=== PATIENT | male | born 1970 | race Two or more races ===

== ENCOUNTER 2017-03-09 18:18 | Emergency (ER) | payer OTHER ==
[~2017-03-09] VITALS: Ht 167.6 cm; Wt 86.2 kg
[2017-03-09 18:25] VITALS: BP 160/89
[2017-03-09] MEDS ORDERED: TDAP [DIPH/PERTUSSIS/TET] 0.5 ML VIAL IM ONE ×2 (18:50→19:00)
--- NOTE | 2017-03-09 18:54 | NUR ---
DT GIVEN ORDERED
[2017-03-09] MEDS ORDERED: LIDOCAINE 1% INJ 50 ML MDV IJ ONE (19:00)
--- NOTE | 2017-03-09 19:18 | NUR ---
Patient discharged to home in stable condition. Written and verbal after care instructions given. Patient verbalizes understanding of instruction.
== END 2017-03-09 19:19 | disposition home or self-care (01) ==
LOC: ER 18:21
DX: S61.213A Laceration without foreign body of left middle finger without damage to nail, initial encounter (principal); F17.200 Nicotine dependence, unspecified, uncomplicated; W26.8XXA Contact with other sharp object(s), not elsewhere classified, initial encounter; Y93.89 Activity, other specified; Y92.89 Other specified places as the place of occurrence of the external cause; Y99.0 Civilian activity done for income or pay
CPT/HCPCS: 12001; 90471; 90715; 99283; A4606; A6402; Z7610